=== PATIENT | female | born 1955 | race Caucasian/White ===

== ENCOUNTER 2016-05-22 13:42 | Emergency (ER) | payer OTHER, BC ==
[~2016-05-22] VITALS: Ht 165.1 cm; Wt 121.9 kg
[~2016-05-22 13:42] MED LIST: ADULT LOW DOSE81 M1 PO; ADVAIR 250/501 DISK IH; ALBUTEROL SULF8.5 GM IH; ALPRAZOLAM0.5 MG PO; AMITRIPTYLINE H25 MG PO; ANTIVERT25 MG PO; ASCORBIC ACID500 M1 PO; ASCORBIC ACID500 M3 PO; ASPIRIN E.C.81 M1 PO; AUGMENTIN875 MG PO; Advair HFA 115/21 IH; CALCIUM + D3 E1 EACH PO; CALCIUM600 MG PO; CALTRATE 600600 MG PO; CALTRATE PLUS1 EACH PO; CARBAMAZEPINE200 MG PO; CARBATROL-ER100 MG PO; CLOTRIM ANTIFUN15 GM TP; COMPAZINE10 MG PO; CYANOCOBALAM1000 MCG PO; CYMBALTA30 MG PO; DELTASONE20 M1 PO; DUONEB 2.5-0.5 M3 ML AEROSOL; DUONEB 2.5-0.5 M3 ML IH; ELAVIL25 MG PO; ELAVIL50 MG PO; FURO40I IV; FUROSEMIDE20 MG PO; FUROSEMIDE40 MG PO; Feosol PO; Flonase BOTH NARES; GABAPENTIN100 MG PO; GLIMEPIRIDE4 MG PO; GLUCOPHAGE XR,500 MG PO; GLUCOPHAGE500 MG PO; GLYBURIDE5 MG PO; HUMALOG100 UNIT/1 SC; HUMALOG100 UNIT/2 SC; IRON325 MG PO; K-DUR10 MEQ PO; LANTUS 10100 UNITS/ SC; LANTUS 3 M100 UNITS1 SC; LASIX10 MG PO; LASIX20 MG PO; LASIX40 MG PO; LEVAQUIN500 MG PO; LEVEMIR FL100 UNIT/1 SC; LIDODERM 5% P1 PATCH TD; LOTRISONE15 GM TP; LUNESTA2 MG PO; LYRICA100 MG PO; LYRICA50 MG PO; Levaquin PO; METFORMIN HCL500 MG PO; METOPROLOL SUCC25 MG PO; METOPROLOL SUCC50 MG PO; METRO GEL 1%60 GM TP; MOTRIN IB200 MG PO; MYCOSTATIN 100,60 ML PO; NOVOLOG PE100 UNITS/; NOVOLOG PE100 UNITS/ SC; OMEPRAZOLE40 M1 PO; OXYCONTIN10 MG PO; POTASSIUM; POTASSIUM CHLO10 ME3 PO; PRAVACHOL20 MG PO; PREDNISONE10 MG PO; PREDNISONE20 MG PO; PRILOSEC40 MG PO; PRISTIQ100 MG PO; PROGRAF; PROGRAF1 MG PO; PROVENTIL,2.5 MG/0.5 IH; PROVENTIL,2.5 MG/3 M IH; PROZAC10 M1 PO; PROZAC20 M1 PO; PROZAC20 MG PO; PROZAC40 MG PO; PROzac PO; Prograf PO; RESTORIL15 MG PO; RESTORIL30 MG PO; SINGULAIR10 MG PO; SPIRIVA RESPIMAT4 GM IH; SPIRIVA1 INHALATI IH; STRESS FORMULA1 EACH PO; SUPER CALCIUM1 EAC1 PO; SYMBICORT60 INHALAT IH; Singulair PO; TACROLIMUS ANHYD1 MG PO; TEGRETOL-XR,CA100 MG PO; TEGRETOL-XR,CA200 MG PO; TEMAZEPAM15 MG PO; TEMAZEPAM30 MG PO; TOPAMAX100 MG PO; TOPIRAMATE100 MG PO; VENTOLIN HFA18 GM IH; VICODIN,LORT1 TABLET PO; VITAMIN B12 100MCG PO; VITAMIN B12-FO1 EACH PO; VITAMIN C1000 M1 PO; VITAMIN D2000 UNIT PO; VITAMIN D31000 UNI2 PO; VITAMIN D31000 UNIT PO; Vitamin D, Drisdol PO; XANAX XR0.5 MG PO; XANAX0.125 MG PO; XANAX0.25 MG PO; XANAX0.5 MG PO; Xanax PO; ZINC SULFATE220 M1 PO; ZINC15 MG PO; ZOLOFT100 MG PO; [UNRECOGNIZED DRUG - CODE] PO; [UNRECOGNIZED DRUG - OTHER] PO; predniSONE PO
[2016-05-22 14:27] LABS: POINT-OF-CARE METER ID UU13113778
[2016-05-22 14:59] LABS: HEMATOCRIT 44.4 % (36.0-46.0); MCH 33.9 PG (29.0-34.0); MCHC 33.8 G/DL (30.0-36.0); MCV 100.2 FL (83-99); MEAN PLAT.VOLUME 9.6 uM^3 (9.5-12.4); PLATELET COUNT 161 K/uL (156-360); RBC DIS.WIDTH-CV 13.1 % (11.8-14.6); RBC DIS.WIDTH-SD 47.8 % (39-53); RED BLOOD COUNT 4.43 M/uL (3.80-5.20); WHITE BLOOD COUNT 13.5 K/uL (4.1-10.2)
[2016-05-22 15:08] LABS: CHLORIDE 109 mEq/L (99-109); POTASSIUM 4.1 mEq/L (3.7-5.4); SODIUM 145 mEq/L (136-147)
[2016-05-22 15:11] LABS: ANION GAP 10 MEQ/L (2-14); GLUCOSE 101 mg/dL (70-99)
[2016-05-22 15:14] LABS: GFR ESTIMATE (CALCULATED) 48 mL/min/; UREA NITROGEN (BUN) 24 mg/dL (9-23)
[2016-05-22 15:19] LABS: TROP-I INTERPRETATION NEGATIVE; TROPONIN-I < 0.01 ng/mL (0.0-0.30)
[2016-05-22 15:38] VITALS: BP 126/85
== END 2016-05-22 16:17 | disposition left against medical advice (07) ==
LOC: EME 13:42
DX: E16.2 Hypoglycemia, unspecified (principal); Z53.21 Procedure and treatment not carried out due to patient leaving prior to being seen by health care provider
CPT/HCPCS: 71020; 80048; 82948; 84484; 85027; 93005; 99281; 99283

== ENCOUNTER 2016-09-01 10:32 | Inpatient (IN) | payer OTHER, BC ==
[~2016-09-01] VITALS: Ht 165.1 cm; Wt 123.6 kg
[2016-09-01 11:51] LABS: HEMATOCRIT 41.4 % (36.0-46.0); MCH 34.6 PG (29.0-34.0); MCHC 33.1 G/DL (30.0-36.0); MCV 104.5 FL (83-99); MEAN PLAT.VOLUME 9.7 uM^3 (9.5-12.4); PLATELET COUNT 120 K/uL (156-360); RBC DIS.WIDTH-CV 12.8 % (11.8-14.6); RBC DIS.WIDTH-SD 50.4 % (39-53); RED BLOOD COUNT 3.96 M/uL (3.80-5.20)
[2016-09-01 11:58] LABS: WHITE BLOOD COUNT 9.5 K/uL (4.1-10.2)
[2016-09-01 12:05] LABS: CHLORIDE 104 mEq/L (99-109); POTASSIUM 4.6 mEq/L (3.7-5.4); SODIUM 141 mEq/L (136-147)
[2016-09-01 12:07] LABS: GLUCOSE 99 mg/dL (70-99)
[2016-09-01 12:08] LABS: ANION GAP 9 MEQ/L (2-14)
[2016-09-01 12:09] LABS: TOTAL BILIRUBIN 0.5 mg/dL (0.0-1.0)
[2016-09-01 12:10] LABS: ALKALINE PHOSPHATASE 164 IU/L (3-129)
[2016-09-01 12:11] LABS: GFR ESTIMATE (CALCULATED) 40 mL/min/
[2016-09-01 12:12] LABS: UREA NITROGEN (BUN) 29 mg/dL (9-23)
[2016-09-01 12:13] LABS: TROP-I INTERPRETATION NEGATIVE; TROPONIN-I < 0.01 ng/mL (0.0-0.30)
[2016-09-01] MEDS ORDERED: ELAVIL75 MG PO (13:20)
[2016-09-01] MEDS ORDERED: ASCORBIC ACID500 M3 PO (13:21)
[2016-09-01] MEDS ORDERED: CYMBALTA60 MG PO (13:24)
[2016-09-01] MEDS ORDERED: IRON325 M1 PO (13:25)
[2016-09-01] MEDS ORDERED: LASIX40 MG PO (13:26)
[2016-09-01] MEDS ORDERED: NOVOLOG PE100 UNITS/ SC (13:28)
[2016-09-01] MEDS ORDERED: LANTUS 3 M100 UNITS1 SC (13:29)
[2016-09-01] MEDS ORDERED: PROGRAF1 MG PO (13:33)
[2016-09-01] MEDS ORDERED: 24HOUR ALLERGY10 MG PO (13:36)
[2016-09-01] MEDS ORDERED: FLONASE16 G1 BOTH NARES (13:37)
[2016-09-01] MEDS ORDERED: MYRBETRIQ50 MG PO (13:39)
[2016-09-01 14:49] LABS: ADD MIUA? NO; BILIRUBIN NEGATIVE; BLOOD NEGATIVE; COLOR YELLOW ((YELLOW)); GLUCOSE (STRIP) NEGATIVE; KETONES NEGATIVE; LEUKOCYTES NEGATIVE; NITRITE NEGATIVE; PROTEIN (STRIP) NEGATIVE; UCUL ADDED? NO; UROBILINOGEN 0.2 MG/DL (0.2-1.0)
[2016-09-01 15:51] LABS: SAMPLE HEMOLYSIS CHECK 0; SAMPLE ICTERIC CHECK 0; SAMPLE LIPEMIA CHECK 0
[2016-09-01 16:50] VITALS: BP 129/84
[2016-09-01 17:34] LABS: TROP-I INTERPRETATION NEGATIVE; TROPONIN-I < 0.01 ng/mL (0.0-0.30)
[2016-09-01 19:34] VITALS: BP 138/69
[2016-09-01 23:09] VITALS: BP 128/70
[2016-09-01 23:42] LABS: TROP-I INTERPRETATION NEGATIVE; TROPONIN-I < 0.01 ng/mL (0.0-0.30)
[2016-09-02 03:09] VITALS: BP 132/69
[2016-09-02 07:18] LABS: HEMATOCRIT 38.8 % (36.0-46.0); MCHC 34.3 G/DL (30.0-36.0); MCV 105.1 FL (83-99); MEAN PLAT.VOLUME 10.2 uM^3 (9.5-12.4); PLATELET COUNT 127 K/uL (156-360); RBC DIS.WIDTH-CV 12.5 % (11.8-14.6); RBC DIS.WIDTH-SD 48.2 % (39-53); RED BLOOD COUNT 3.69 M/uL (3.80-5.20); WHITE BLOOD COUNT 9.3 K/uL (4.1-10.2)
[2016-09-02 07:26] VITALS: BP 120/82
[2016-09-02 07:50] LABS: ANION GAP 7 MEQ/L (2-14); CHLORIDE 104 MEQ/L (99-109); GFR ESTIMATE (CALCULATED) 40 mL/min/; POTASSIUM 4.8 MEQ/L (3.7-5.4); SAMPLE HEMOLYSIS CHECK 0; SAMPLE ICTERIC CHECK 0; SAMPLE LIPEMIA CHECK 0; SODIUM 138 MEQ/L (136-147); UREA NITROGEN (BUN) 28 mg/dL (9-23)
[2016-09-02 07:51] LABS: GLUCOSE 270 mg/dL (70-99)
[2016-09-02 12:19] VITALS: BP 117/68
[2016-09-02 16:38] VITALS: BP 129/72
[2016-09-02 19:15] VITALS: BP 145/64
[2016-09-02 23:04] VITALS: BP 144/80
[2016-09-03 02:41] VITALS: BP 150/84
[2016-09-03 06:16] LABS: POINT-OF-CARE METER ID UU14162508
[2016-09-03 06:43] LABS: MCH 35.7 PG (29.0-34.0); MCHC 33.9 G/DL (30.0-36.0); MCV 105.4 FL (83-99); PLATELET COUNT 144 K/uL (156-360); RBC DIS.WIDTH-CV 12.5 % (11.8-14.6); RED BLOOD COUNT 3.89 M/uL (3.80-5.20); WHITE BLOOD COUNT 11.2 K/uL (4.1-10.2)
[2016-09-03 07:15] LABS: ANION GAP 8 MEQ/L (2-14); CHLORIDE 102 MEQ/L (99-109); GFR ESTIMATE (CALCULATED) 48 mL/min/; GLUCOSE 303 mg/dL (70-99); POTASSIUM 5.4 MEQ/L (3.7-5.4); SAMPLE HEMOLYSIS CHECK 0; SAMPLE ICTERIC CHECK 0; SAMPLE LIPEMIA CHECK 0; SODIUM 136 MEQ/L (136-147); UREA NITROGEN (BUN) 31 mg/dL (9-23)
[2016-09-03 08:44] VITALS: BP 132/89
[2016-09-03 13:00] VITALS: BP 146/88
[2016-09-03 16:27] VITALS: BP 144/77
[2016-09-04 00:12] VITALS: BP 134/74
[2016-09-04 06:55] LABS: POINT-OF-CARE METER ID UU14162508
[2016-09-04 07:46] VITALS: BP 142/86
[2016-09-04 08:02] LABS: ANION GAP 8 MEQ/L (2-14); CHLORIDE 103 MEQ/L (99-109); GFR ESTIMATE (CALCULATED) > 59 mL/min/; GLUCOSE 245 mg/dL (70-99); POTASSIUM 4.8 MEQ/L (3.7-5.4); SAMPLE HEMOLYSIS CHECK 0; SAMPLE ICTERIC CHECK 0; SAMPLE LIPEMIA CHECK 0; SODIUM 138 MEQ/L (136-147); UREA NITROGEN (BUN) 31 mg/dL (9-23)
[2016-09-04 12:02] LABS: POINT-OF-CARE METER ID UU14162508
[2016-09-04 17:01] LABS: POINT-OF-CARE METER ID UU14162508
[2016-09-04 17:13] VITALS: BP 162/92
[2016-09-04 21:09] LABS: POINT-OF-CARE METER ID UU14162508
[2016-09-04 23:48] VITALS: BP 125/61
[2016-09-05 06:37] LABS: POINT-OF-CARE METER ID UU14162508
[2016-09-05 08:00] VITALS: BP 115/66; BP 143/91
[2016-09-05 12:00] VITALS: BP 146/88
[2016-09-05 15:47] VITALS: BP 136/86
[2016-09-05 23:30] VITALS: BP 133/70
[2016-09-06 06:39] LABS: POINT-OF-CARE METER ID UU14162508
[2016-09-06 08:10] VITALS: BP 139/88
[2016-09-06] MEDS ORDERED: Robitussin AC,Tussi- PO (11:28)
[2016-09-06] MEDS ORDERED: PREDNISONE20 MG PO (11:28)
[2016-09-06] MEDS ORDERED: ADVAIR HFA120 INHALA IH (11:28)
[2016-09-06] MEDS ORDERED: NICOTINE PATCH1 EAC1 TD (11:28)
[2016-09-06] MEDS ORDERED: SPIRIVA RESPIMAT4 GM IH (11:28)
[2016-09-06] MEDS ORDERED: DOXYCYCLINE HY100 M3 PO (11:28)
== END 2016-09-06 13:05 | disposition home or self-care (01) | DRG 683 ==
LOC: EME 10:32 → EDOF 14:58 → 2EAST 14:58
PROVIDERS: Hospitalist; Internal Medicine; Physician Assistant; Physician Assistant Medical; Student in an Organized Health Care Education/Training Program
DX: N17.9 Acute kidney failure, unspecified (principal); J44.1 Chronic obstructive pulmonary disease with (acute) exacerbation; I47.2 Ventricular tachycardia; Z68.42 Body mass index [BMI] 45.0-49.9, adult; Z94.4 Liver transplant status; I50.30 Unspecified diastolic (congestive) heart failure; E11.40 Type 2 diabetes mellitus with diabetic neuropathy, unspecified; I27.2 Other secondary pulmonary hypertension; M79.89 Other specified soft tissue disorders; E11.9 Type 2 diabetes mellitus without complications; F17.200 Nicotine dependence, unspecified, uncomplicated; K21.9 Gastro-esophageal reflux disease without esophagitis; R06.00 Dyspnea, unspecified; E66.9 Obesity, unspecified; G47.33 Obstructive sleep apnea (adult) (pediatric); Z71.6 Tobacco abuse counseling; Z90.2 Acquired absence of lung [part of]; Z85.118 Personal history of other malignant neoplasm of bronchus and lung; Z91.19 Patient's noncompliance with other medical treatment and regimen; Z88.6 Allergy status to analgesic agent; Z88.8 Allergy status to other drugs, medicaments and biological substances
CPT/HCPCS: 71010; 71020; 71275; 76770; 80048; 80053; 81003; 82010; 82948; 83880; 84484; 85027; 93005; 93970; 94640; 94640 76; 94664; 94799; 99281; 99285; J1200; J1650; J1815; J2920; J2930; J7030; J7040; J7507; J7512

== ENCOUNTER → 2017-05-03 | Outpatient (CLI) | payer OTHER, BC ==
[~2017-05-03] MED LIST changes: +24HOUR ALLERGY10 MG PO; +ADVAIR HFA120 INHALA IH; +CYMBALTA60 MG PO; +DOXYCYCLINE HY100 M3 PO; +ELAVIL75 MG PO; +FLONASE16 G1 BOTH NARES; +IRON325 M1 PO; +MYRBETRIQ50 MG PO; +NICOTINE PATCH1 EAC1 TD; +Robitussin AC,Tussi- PO
== END | disposition home or self-care (01) ==
LOC: NUC 13:39
DX: S92.912D Unspecified fracture of left toe(s), subsequent encounter for fracture with routine healing (principal); S22.32XD Fracture of one rib, left side, subsequent encounter for fracture with routine healing; M17.12 Unilateral primary osteoarthritis, left knee; M47.896 Other spondylosis, lumbar region; R93.7 Abnormal findings on diagnostic imaging of other parts of musculoskeletal system
CPT/HCPCS: 78315; A9503

== ENCOUNTER 2017-10-09 18:59 | Emergency (ER) | payer OTHER, BC ==
[~2017-10-09] VITALS: Ht 162.6 cm; Wt 104.9 kg
[2017-10-09 23:10] LABS: HEMATOCRIT 37.7 % (36.0-46.0); HEMOGLOBIN 12.7 G/DL (11.9-15.5); MCH 34.1 PG (29.0-34.0); MCHC 33.7 G/DL (30.0-36.0); MCV 101.3 FL (83-99); PLATELET COUNT 144 K/uL (156-360); RBC DIS.WIDTH-SD 48.7 % (39-53); RED BLOOD COUNT 3.72 M/uL (3.80-5.20)
[2017-10-10] MEDS ORDERED: KEFLEX500 MG PO (01:50)
[2017-10-10] MEDS ORDERED: ROXICODONE5 MG PO (01:50)
[2017-10-10 01:59] VITALS: BP 113/68
== END 2017-10-10 02:06 | disposition home or self-care (01) ==
LOC: EME 18:59
PROVIDERS: Physician Assistant
DX: L03.116 Cellulitis of left lower limb (principal); L03.115 Cellulitis of right lower limb; M79.89 Other specified soft tissue disorders; I87.8 Other specified disorders of veins; J45.909 Unspecified asthma, uncomplicated; E11.9 Type 2 diabetes mellitus without complications; Z94.4 Liver transplant status; Z85.118 Personal history of other malignant neoplasm of bronchus and lung; Z95.1 Presence of aortocoronary bypass graft; Z86.73 Personal history of transient ischemic attack (TIA), and cerebral infarction without residual deficits; Z79.4 Long term (current) use of insulin; F17.200 Nicotine dependence, unspecified, uncomplicated
CPT/HCPCS: 80053; 81003; 83880; 85027; 93970; 99281; 99284

== ENCOUNTER 2017-11-01 12:10 | Emergency (ER) | payer OTHER, BC ==
[~2017-11-01] VITALS: Ht 162.6 cm; Wt 102.2 kg
[~2017-11-01 12:10] MED LIST changes: +KEFLEX500 MG PO; +ROXICODONE5 MG PO
[2017-11-01 12:49] LABS: BASOPHIL (%) 0 % (0-1); EOSINOPHIL (%) 0.6 % (0-5); HEMATOCRIT 38.2 % (36.0-46.0); HEMOGLOBIN 12.9 G/DL (11.9-15.5); IMMATURE GRANULOCYTE (%) 0.3 % (0.0-0.7); LYMPHOCYTE (%) 15.4 % (15-42); LYMPHOCYTE COUNT 1.1 K/uL (1.0-2.8); MCHC 33.8 G/DL (30.0-36.0); MCV 100.8 FL (83-99); MONOCYTE (%) 6.2 % (3-12); MONOCYTE COUNT 0.5 K/uL (0-0.8); NEUTROPHIL (%) 77.5 % (45-76); NEUTROPHIL COUNT 5.6 K/uL (1.8-6.4); PLATELET COUNT 125 K/uL (156-360); RBC DIS.WIDTH-CV 13.2 % (11.8-14.6); RBC DIS.WIDTH-SD 49.2 % (39-53); RED BLOOD COUNT 3.79 M/uL (3.80-5.20); WHITE BLOOD COUNT 7.3 K/uL (4.1-10.2)
[2017-11-01 13:00] LABS: APPEARANCE CLEAR ((CLEAR)); BILIRUBIN NEGATIVE; BLOOD NEGATIVE; COLOR YELLOW ((YELLOW)); GLUCOSE (STRIP) NEGATIVE; KETONES NEGATIVE; LEUKOCYTES NEGATIVE; NITRITE NEGATIVE; PROTEIN (STRIP) NEGATIVE; SPECIFIC GRAVITY 1.016 (1.000-1.030); UROBILINOGEN 0.2 MG/DL (0.2-1.0)
[2017-11-01 13:01] LABS: ALBUMIN 3.6 g/dL (3.2-4.8); CHLORIDE 111 mEq/L (99-109); POTASSIUM 4.7 mEq/L (3.7-5.4)
[2017-11-01 13:02] LABS: SODIUM 142 mEq/L (136-147)
[2017-11-01 13:04] LABS: GLUCOSE 86 mg/dL (70-99); TOTAL PROTEIN 5.7 g/dL (6.4-8.3)
[2017-11-01 13:06] LABS: TOTAL BILIRUBIN 0.5 mg/dL (0.0-1.0)
[2017-11-01 13:07] LABS: ALKALINE PHOSPHATASE 129 IU/L (3-129); CREATININE 1.2 mg/dL (0.6-1.3); GFR ESTIMATE (CALCULATED) 48 mL/min/
[2017-11-01 13:09] LABS: AST (GOT) 17 IU/L (2-34); UREA NITROGEN (BUN) 26 mg/dL (9-23)
[2017-11-01 13:10] LABS: ALT (GPT) 12 IU/L (3-49)
[2017-11-01 16:10] VITALS: BP 142/87
== END 2017-11-01 16:28 | disposition home or self-care (01) ==
LOC: EME 12:10
PROVIDERS: Emergency Medicine
DX: E11.649 Type 2 diabetes mellitus with hypoglycemia without coma (principal); Z79.4 Long term (current) use of insulin; J45.909 Unspecified asthma, uncomplicated; K21.9 Gastro-esophageal reflux disease without esophagitis; F17.200 Nicotine dependence, unspecified, uncomplicated; I50.9 Heart failure, unspecified; Z86.73 Personal history of transient ischemic attack (TIA), and cerebral infarction without residual deficits; F32.9 Major depressive disorder, single episode, unspecified; F41.9 Anxiety disorder, unspecified; Z95.1 Presence of aortocoronary bypass graft; Z94.4 Liver transplant status; Z85.118 Personal history of other malignant neoplasm of bronchus and lung; Z88.6 Allergy status to analgesic agent; Z88.5 Allergy status to narcotic agent; Z88.8 Allergy status to other drugs, medicaments and biological substances; Z87.442 Personal history of urinary calculi
CPT/HCPCS: 71045; 80053; 81003; 82948; 85025; 99281; 99285

== ENCOUNTER 2017-11-23 20:39 | Emergency (ER) | payer OTHER, BC ==
[~2017-11-23] VITALS: Ht 162.6 cm; Wt 99.1 kg
[~2017-11-23 20:39] MED LIST changes: -METOPROLOL SUCC50 MG PO; +TOPROL XL50 MG PO
[2017-11-23 20:58] LABS: HEMATOCRIT 38.2 % (36.0-46.0); HEMOGLOBIN 13.1 G/DL (11.9-15.5); MCH 34.5 PG (29.0-34.0); MCHC 34.3 G/DL (30.0-36.0); MCV 100.5 FL (83-99); PLATELET COUNT 124 K/uL (156-360); RBC DIS.WIDTH-CV 12.8 % (11.8-14.6); RBC DIS.WIDTH-SD 47.4 % (39-53); WHITE BLOOD COUNT 7.9 K/uL (4.1-10.2)
[2017-11-23 21:08] LABS: CHLORIDE 110 mEq/L (99-109); SODIUM 143 mEq/L (136-147)
[2017-11-23 21:10] LABS: GLUCOSE 115 mg/dL (70-99)
[2017-11-23 21:13] LABS: CREATININE 1.2 mg/dL (0.6-1.3); GFR ESTIMATE (CALCULATED) 48 mL/min/
[2017-11-23 21:14] LABS: UREA NITROGEN (BUN) 25 mg/dL (9-23)
[2017-11-23 21:42] LABS: ALBUMIN 3.7 g/dL (3.2-4.8)
[2017-11-23 21:45] LABS: TOTAL PROTEIN 6.1 g/dL (6.4-8.3)
[2017-11-23 21:47] LABS: TOTAL BILIRUBIN 0.5 mg/dL (0.0-1.0)
[2017-11-23 21:48] LABS: ALKALINE PHOSPHATASE 148 IU/L (3-129)
[2017-11-23 21:50] LABS: AST (GOT) 15 IU/L (2-34)
[2017-11-23 21:51] LABS: ALT (GPT) 14 IU/L (3-49); DIRECT BILIRUBIN 0.3 mg/dL (0.0-0.3)
[2017-11-23 21:52] LABS: LIPASE 16 U/L (1.0-51.0)
[2017-11-23 23:39] LABS: APPEARANCE CLOUDY ((CLEAR)); BILIRUBIN NEGATIVE; BLOOD NEGATIVE; COLOR AMBER ((YELLOW)); GLUCOSE (STRIP) NEGATIVE; KETONES NEGATIVE; LEUKOCYTES NEGATIVE; NITRITE NEGATIVE; PROTEIN (STRIP) NEGATIVE; SPECIFIC GRAVITY 1.014 (1.000-1.030)
[2017-11-23 23:53] LABS: BACTERIA RARE /HPF; EPITHELIAL CELLS 2+ /HPF; MUCUS TRACE /LPF; RED BLOOD CELLS 0-5 /HPF (0-5); UCUL ADDED? NO; WHITE BLOOD CELLS 0-5 /HPF (0-5)
[2017-11-24] MEDS ORDERED: FLEXERIL10 MG PO (00:07)
[2017-11-24] MEDS ORDERED: OXAYDO5 MG PO (00:07)
[2017-11-24] MEDS ORDERED: ZOFRAN ODT4 MG PO (00:41)
[2017-11-24 01:11] VITALS: BP 158/80
[2017-11-24] MEDS ORDERED: WOMEN'S DAILY1 EAC5 PO (09:38)
[2017-11-24] MEDS ORDERED: ROXICODONE5 MG PO (09:40)
[2017-11-24] MEDS ORDERED: MILK THISTLE175 MG PO (09:41)
[2017-11-24] MEDS ORDERED: PRISTIQ100 MG PO (09:42)
[2017-11-24] MEDS ORDERED: OMEGA-31000 M1 PO (09:44)
[2017-11-24] MEDS ORDERED: SUPER B COMPL400 MCG PO (09:45)
[2017-11-24] MEDS ORDERED: TOPAMAX100 MG PO (09:47)
[2017-11-24] MEDS ORDERED: RESTORIL30 MG PO (09:48)
== END 2017-11-24 01:12 | disposition home or self-care (01) ==
LOC: EME 20:39
DX: R10.9 Unspecified abdominal pain (principal); S80.02XA Contusion of left knee, initial encounter; W18.30XA Fall on same level, unspecified, initial encounter; J45.909 Unspecified asthma, uncomplicated; E11.9 Type 2 diabetes mellitus without complications; I50.9 Heart failure, unspecified; K21.9 Gastro-esophageal reflux disease without esophagitis; F41.9 Anxiety disorder, unspecified; F32.9 Major depressive disorder, single episode, unspecified; Z72.0 Tobacco use; Z87.442 Personal history of urinary calculi; Z85.118 Personal history of other malignant neoplasm of bronchus and lung; Z86.73 Personal history of transient ischemic attack (TIA), and cerebral infarction without residual deficits; Z94.4 Liver transplant status; Z95.1 Presence of aortocoronary bypass graft; Z90.49 Acquired absence of other specified parts of digestive tract; Z79.4 Long term (current) use of insulin; Z88.6 Allergy status to analgesic agent; Z88.8 Allergy status to other drugs, medicaments and biological substances; Z88.5 Allergy status to narcotic agent
CPT/HCPCS: 73564; 74176; 80048; 80076; 81003; 83690; 85027; 99281; 99284; J2270; J3010

== ENCOUNTER 2017-11-29 05:41 | Day surgery (SDC) | payer OTHER, BC ==
[~2017-11-29] VITALS: Ht 162.6 cm; Wt 98.8 kg
[~2017-11-29 05:41] MED LIST changes: +FLEXERIL10 MG PO; +MILK THISTLE175 MG PO; +OMEGA-31000 M1 PO; +OXAYDO5 MG PO; +SUPER B COMPL400 MCG PO; +WOMEN'S DAILY1 EAC5 PO; +ZOFRAN ODT4 MG PO
[2017-11-29 06:43] VITALS: BP 122/70
[2017-11-29 12:41] VITALS: BP 119/87
[2017-11-29 13:10] VITALS: BP 125/81
== END 2017-11-29 13:25 | disposition home or self-care (01) ==
LOC: SDC
PROVIDERS: Surgery
PROC: 0HBU0ZX Excision of Left Breast, Open Approach, Diagnostic (ICD-10-PCS; principal; 2017-11-29)
DX: N60.82 Other benign mammary dysplasias of left breast (principal); D24.2 Benign neoplasm of left breast; F17.210 Nicotine dependence, cigarettes, uncomplicated; E11.610 Type 2 diabetes mellitus with diabetic neuropathic arthropathy; Z79.4 Long term (current) use of insulin; J44.9 Chronic obstructive pulmonary disease, unspecified; K44.9 Diaphragmatic hernia without obstruction or gangrene; E66.01 Morbid (severe) obesity due to excess calories; Z68.37 Body mass index [BMI] 37.0-37.9, adult; M81.0 Age-related osteoporosis without current pathological fracture; Z80.3 Family history of malignant neoplasm of breast; Z94.4 Liver transplant status; Z85.118 Personal history of other malignant neoplasm of bronchus and lung; Z90.49 Acquired absence of other specified parts of digestive tract; Z90.2 Acquired absence of lung [part of]; Z90.710 Acquired absence of both cervix and uterus; Z86.73 Personal history of transient ischemic attack (TIA), and cerebral infarction without residual deficits; Z88.8 Allergy status to other drugs, medicaments and biological substances
CPT/HCPCS: 82948; 88307; J0131; J0330; J0690; J1100; J2250; J2405; J3010; S0020